=== PATIENT | female | born 1960 | race Caucasian/White ===

== ENCOUNTER → 2016-08-07 | Outpatient (CLI) | payer BC | LOC: MC.RAD 08:37 | DX: Z12.31 Encounter for screening mammogram for malignant neoplasm of breast (principal) ==

== ENCOUNTER 2019-08-15 08:00 | Outpatient (RCR) | payer OTHER | END 2019-08-26 09:19 | disposition home or self-care (01) | LOC: MKS.ESL.PT 08:00 | DX: S13.4XXD Sprain of ligaments of cervical spine, subsequent encounter (principal) ==

== ENCOUNTER 2019-11-11 10:45 | Outpatient (RCR) | payer BC | END 2020-01-19 | disposition home or self-care (01) | LOC: MKS.ESL.PT | DX: M67.922 Unspecified disorder of synovium and tendon, left upper arm (principal) ==

== ENCOUNTER → 2020-05-30 | Outpatient (CLI) | payer BC | LOC: MC.RAD 08:15 | DX: Z12.31 Encounter for screening mammogram for malignant neoplasm of breast (principal) ==

== ENCOUNTER → 2021-07-05 | Outpatient (CLI) | payer BC | LOC: MC.RAD 07:45 | DX: Z12.31 Encounter for screening mammogram for malignant neoplasm of breast (principal) ==

== ENCOUNTER → 2023-10-28 | Outpatient (CLI) | payer BC | LOC: MC.RAD 07:00 | DX: Z12.31 Encounter for screening mammogram for malignant neoplasm of breast (principal) ==